=== PATIENT | female | born 1970 | race Caucasian/White ===

== ENCOUNTER 2020-05-06 16:56 | Emergency (ER) | payer OTHER, SELFPAY ==
[2020-05-06 16:58] VITALS: BP 131/82; PULSE 83; RESP 16; TEMP 36.4; O2SAT 98; BMI 21.9
[2020-05-06 17:00] VITALS: BP 131/82; PULSE 95; RESP 16; TEMP 36.4; O2SAT 97
--- NOTE | 2020-05-06 17:12 | MRI_ITS ---
STUDY: MRI BRAIN WITH AND WITHOUT CONTRAST REASON FOR EXAM: Female, 49 years old. confusion, h/o breast ca -- stage IV breast ca dx 2016, confusion,slurred speech x 3 weeks TECHNIQUE: Standardized multiplanar fat and water weighted pulse sequences were obtained. dotarem 12ml iv was administered for the contrast portion of the examination. COMPARISON: None. FINDINGS: Large intra-axial mass in the left parietal lobe measuring 5.9 x 5.5 x 3.4 cm demonstrates heterogeneous peripheral enhancement. There is anterior-inferior displacement of the left lateral ventricle. There is local sulcal effacement. No midline shift. There is moderate surrounding vasogenic edema. At least 4 additional enhancing intracranial lesions are demonstrated, measuring up to 1.3 cm area No acute hemorrhage. Normal white matter tracts of the supratentorial brain. There is no extra-axial fluid accumulation. Normal flow voids within the major intracranial circulation suggesting patency by spin echo criteria. Normal sella turcica, pituitary gland, infundibular stalk, optic chiasm and hypothalamus. Normal midbrain, alma and medulla. Normal cerebellum. Normal basal cisterns. Normal bilateral temporal bones. Normal bilateral internal auditory canals. No demonstrated orbital abnormality, within the constraints of a routine brain study. Normal visualized paranasal sinuses. Normal calvarium and skull base. Normal visualized soft tissue structures. MRI/Brain W/WO Contrast IMPRESSION: 1. Multiple peripherally enhancing intracranial lesions, the largest in the left parietal lobe, consistent with metastases. Electronically Signed: Nydia Rodríguez MD at 19:57 EDT Tel , Service support ,
--- NOTE | 2020-05-06 17:15 | ED.VIS.GEN ---
History of Present Illness Chief Complaint: Confusion Informant: Patient, Family Onset: Weeks Narrative: Patient has a history of stage IV breast cancer diagnosed 2 years ago. She has been doing alternative treatments. She presents today secondary to intermittent confusion and intermittent blurred vision, worse in the right eye. She is currently awaiting test results to go to [place] for another form of treatment. For this they require MRI of her brain which would be reasonable given her current symptoms. Patient denies history of seizure. She denies headache at this time. - Past Medical History (1) Breast cancer Status: Chronic Past Medical History - Allergies and Home Meds Allergies/Adverse Reactions: Allergies nitrofurantoin [From Macrobid] Allergy (Verified 05/06/20 17:01) Hives Primary Care Physician: Shavon Velásquez,Out of [NON-STAFF] - Lives: With Family Review of Systems General: Denies: Chills, Fever Eyes: Reports: Blurred vision - right ENT: Denies: Bilateral ear pain Cardiovascular: Denies: Chest pain Respiratory: Denies: Dyspnea, Cough Gastrointestinal: Denies: Abdominal pain, Nausea, Vomiting, Diarrhea Genitourinary: Denies: Dysuria Musculoskeletal: Denies: Swelling, Extremity Pain Skin: Denies: Rash Neurological: Denies: Headache Hematologic: Denies: Easy bruising, Easy bleeding Allergy: Denies: Uticaria Physical Exam Vital Signs/Narrative: Vital Signs Temp Pulse Resp BP Pulse Ox 05/06/20 17:00 97.5 F L 95 16 131/82 H 97 05/06/20 16:58 97.5 F L 83 16 131/82 H 98 Inital Vital Signs reviewed: Yes General: Well nourished, Well developed Head: Normocephalic ENT: Moist mucous membranes Neck: Supple Cardiovascular: Regular rate, Regular rhythm Respiratory: No distress, CTA bilaterally Abdomen: Soft, Nontender, Normal bowel sounds Extremities: Nontender Skin: Normal color Neurological: Alert, Oriented x3, Normal Strength, Normal Sensation Psychological: Normal affect Diagnostic/Tx/Re-eval - Medical Decision Making MRI brain with and without contrast was ordered. Per my quick review there does appear to be a mass in the left posterior cerebrum. Patient's [id number] is a physician and will speak with them regarding results and what they wish to do with this. Patient does not want to wait for formal results. She does understand that we do not have neurology or neurosurgery available here and she would require transfer for treatment. At this time she wishes to go home and decide where she would like to go for treatment. ED Disposition - Plan for ED Patient: Disposition: Home or Assisted Living Diagnosis: Confusion Instructions: ED Confusion Referrals: Town Doctor,Out of [NON-STAFF] -
[2020-05-06] MEDS: Contrast Allergy Safety Check IV (19:14)
[2020-05-06 19:19] VITALS: BP 121/88; PULSE 77; RESP 16; O2SAT 97
== END 2020-05-06 19:26 | disposition home or self-care (01) ==
PROVIDERS: Emergency Provider Emergency Medicine
DX: R41.0 Disorientation, unspecified (principal)
CPT/HCPCS: 70553; 99282; A9575; A4216